=== PATIENT | female | born 1975 | race Caucasian/White ===

== ENCOUNTER 2019-06-08 06:43 | Emergency (ER) | payer BC ==
[2019-06-08 07:13] LABS: #Basophils 0.1 thou/uL (0.0-0.2); #Eosinphils 0.5 thou/uL (0.0-0.7); #Monocytes 0.5 thou/uL (0.11-0.59); #Neutrophils 5.7 thou/uL (1.40-6.50); %Basophils 0.8 % (0.0-1.0); %Eosinophils 5.7 % (0.0-10.0); %Lymphocytes 22.7 % (21.0-51.0); %Monocytes 5.9 % (0.0-10.0); %Neutrophils 64.9 % (42.0-75.0); Hemoglobin 12.9 g/dL (12.0-16.0); Mean Corpuscular HGB CONC 34.5 g/dL (32.0-36.0); Mean Corpuscular Hemoglobin 31.4 pg (27.0-31.0); Mean Corpuscular Volume 91.1 fL (78.0-98.0); Mean Platelet Volume 7.2 fL (7.4-10.4); Platelet Count 274 thou/uL (130-400); Red Blood Cell (RBC) Count 4.11 mill/uL (4.20-5.40); White Blood Cell (WBC) Count 8.8 thou/uL (4.8-10.8)
[2019-06-08 07:27] LABS: ALT (SGPT) 8 U/L (8-55); AST (SGOT) 11 U/L (5-34); Alkaline Phosphatase 77 U/L (40-150); Anion Gap 11 mmol/L (10-20); BUN (Urea Nitrogen) 13 mg/dL (7.0-18.7); Bilirubin, Total 0.2 mg/dL (0.2-1.2); Calc. Creatinine Clearance 0 mL/min (70-130); Carbon Dioxide 23 mmol/L (22-29); Chloride 108 mmol/L (98-107); Estimated GFR-MDRD 87; Globulin 2.8 g/dL (2.4-3.5); Glucose 109 mg/dL (70-105); Lipase 31 U/L (8-78); Potassium 4.1 mmol/L (3.5-5.1); Protein, Total 6.8 g/dL (6.0-8.3); Sodium 138 mmol/L (136-145)
[2019-06-08] MEDS ORDERED: Ondansetron PF 4 MG/2 ML Vial ONE (07:43)
[2019-06-08] MEDS ORDERED: Morphine 4 MG/ML VIAL ONE (07:43)
--- NOTE | 2019-06-08 08:26 | CT ---
EXAM: CT Stone Protocol PROVIDED CLINICAL HISTORY: Right flank pain COMPARISON: None FINDINGS: Visualized lung bases are free of significant opacity. Bilateral perinephric fat stranding. No evidence for urinary tract calculi or hydronephrosis. 1.7 cm incompletely characterized mass arising from the posterior aspect of the left kidney. No bowel dilatation, additional inflammatory fat stranding or lymph node enlargement apparent. Trace free pelvic fluid. 4.4 cm right adnexal mass, incompletely characterized. Appendix appears normal. The osseous structures demonstrate no concerning lytic or blastic lesions. IMPRESSION: 1. Bilateral perinephric fat stranding without evidence for urinary tract calculi or hydronephrosis. Correlate with concerns for pyelonephritis. 2. Incompletely characterized 4.4 cm right adnexal mass. Correlation with pelvic ultrasound recommend ed. 3. Incompletely characterized 1.7 cm left renal mass. Correlation with nonemergent renal ultrasound r ecommended.
[2019-06-08 09:39] LABS: Bacteria/HPF 1+ HPF (None Seen); Bilirubin Negative (Negative); Blood, Urine Negative (Negative); Clarity Clear (Clear); Glucose, Urine (Dipstick) Normal (Negative); Leukocyte 25 Leu/uL (Negative); Mucous/LPF 3+ LPF (<2+); Nitrite Negative (Negative); Protein, Urine (Dipstick) Negative (Neg-Trace); RBC/HPF 0-3 HPF (0-3); Urobilinogen Normal mg/dL (Less than 2); WBC/HPF None Seen HPF (0-3)
--- NOTE | 2019-06-08 09:44 | ULT ---
EXAM: US Pelvic W Doppler PROVIDED CLINICAL HISTORY: Right flank pain COMPARISON: Concurrently performed CT examination FINDINGS: The uterus is not visualized compatible with the provided clinical history of prior hysterectomy. The left ovary is not demonstrated. The right ovary measures about 4.7 x 4.3 x 4.2 cm and demonstrates a complex cystic mass measuring ab out 2.9 cm. This may reflect physiologic change. Color Doppler and spectral analysis of the ovarian waveforms demonstrates normal flow. No evidence for significant free pelvic fluid. IMPRESSION: No evidence for ovarian torsion. Follow-up 12 week pelvic ultrasound recommended for evaluation of re solution of cystic mass that may be physiologic.
[2019-06-08] MEDS ORDERED: Ketorolac Tromethamine 30 MG/ML VIAL ONE (10:27)
== END 2019-06-08 10:45 | disposition home or self-care (01) ==
LOC: ERS 06:43
DX: N83.201 Unspecified ovarian cyst, right side (principal); N39.0 Urinary tract infection, site not specified; F17.210 Nicotine dependence, cigarettes, uncomplicated; F32.9 Major depressive disorder, single episode, unspecified
CPT/HCPCS: 36415; 74176; 76856; 80053; 81003; 81015; 83690; 85025; 87086; 93976; 96361; 96374; 96375; J1885; J2270; J2405